=== PATIENT | female | born 1985 | race Caucasian/White ===

== ENCOUNTER → 2022-01-08 | Outpatient (CLI) | payer OTHER ==
[~2022-01-08] MED LIST: ALPR.5 PO; AMOX500 PO; ANTOXYBENA OT; BCP; BUPR150T2 PO; CEPH500 PO; CLIN300 PO; CYCL10 PO; GLIP10 PO; GLIP10ER PO; GLIP5 PO; Glucotrol Xl5 MG PO; HYDACE5 PO; HYDR1TAB94 PO; IBUP400 PO; IBUP600 PO; IBUP800 PO; LISHYD2025 PO; LISI20 PO; LISI5 PO; METF500 PO; NAPR500 PO; NEOPOLHYDS OT; Norco 5-325 Ta1 EACH PO; OXYACE5T PO; PROM25 PO; Prinivil10 MG PO; RXCEPH500 PO; RXOXYACE PO; RXSULTRIDS PO; SULTRIDS PO; VENL75ER PO; YAZ; Zofran Odt4 MG SL; [UNRECOGNIZED DRUG - OTHER]
== END ==
LOC: LAB SHORT 14:20 → LAB 14:20
DX: E11.65 Type 2 diabetes mellitus with hyperglycemia (principal)
CPT/HCPCS: 82043

== ENCOUNTER → 2022-11-26 | Outpatient (CLI) | payer OTHER | END | disposition home or self-care (01) | LOC: LAB SHORT 09:30 | DX: E11.649 Type 2 diabetes mellitus with hypoglycemia without coma (principal) | CPT/HCPCS: 82043 ==

== ENCOUNTER → 2023-06-16 | Outpatient (CLI) | payer OTHER ==
[~2023-06-16] MED LIST changes: +CHLO25B PO; +DEBLITANE0.35 MG PO; +INSULIN GL100 UNIT/2 SC; +LOSA50 PO
== END ==
LOC: LAB SHORT 14:50 → LAB 14:50
DX: N89.8 Other specified noninflammatory disorders of vagina (principal)
CPT/HCPCS: 87070; 87205

== ENCOUNTER → 2025-04-02 | Outpatient (CLI) | payer OTHER | LOC: LAB SHORT 15:30 → LAB 15:30 | DX: L02.811 Cutaneous abscess of head [any part, except face] (principal) | CPT/HCPCS: 87070; 87075; 87077; 87147; 87186; 87205 ==

== ENCOUNTER → 2025-08-16 | Outpatient (CLI) | payer OTHER ==
[2025-08-16 21:17] LABS: Bacterial Vaginosis PCR Negative (NEGATIVE)
[2025-08-16 21:58] LABS: Candida Group, PCR DETECTED (NOT DETECT); Candida glabrata-krusei, PCR DETECTED (NOT DETECT)
== END ==
LOC: LAB 11:58 → LAB SHORT 11:58
PROVIDERS: Student in an Organized Health Care Education/Training Program
DX: B37.31 Acute candidiasis of vulva and vagina (principal)
CPT/HCPCS: 81515